=== PATIENT | female | born 1995 | race African-American/Black ===

== ENCOUNTER 2021-01-04 10:00 | Outpatient (CLI) | payer OTHER ==
[2021-01-04 12:36] LABS: BILIRUBIN,URINE NEGATIVE (NEGATIVE); GLUCOSE, URINE (UA) NEGATIVE (NEGATIVE); KETONES,URINE (UA) NEGATIVE (NEGATIVE); LEUKOCYTE ESTERASE, URINE NEGATIVE (NEGATIVE); NITRITE,URINE NEGATIVE (NEGATIVE); OCCULT BLOOD,URINE NEGATIVE (NEGATIVE); PH,URINE 6.5 PH (5.0-7.5); PROTEIN,URINE NEGATIVE (NEGATIVE); UROBILINOGEN,URINE 0.2 (NORMAL) E.U./dL (NORMAL)
[2021-01-04 12:42] LABS: CLARITY,URINE CLOUDY (CLEAR)
[2021-01-04 13:06] LABS: WBC,URINE 0-3 /HPF (0-5)
[2021-01-04 13:07] LABS: BACTERIA,URINE Rare /HPF (None Seen); EPITHELIAL CELLS,UR FEW Transitional /HPF (<= Few); MUCUS,URINE Marked Strands; RBC,URINE None Seen /HPF (0-5); SQUAMOUS EPITHELIAL CELL,UR FEW Squamous (<= Few)
== END 2021-01-04 23:59 | disposition home or self-care (01) ==
LOC: LAB.R 10:00
PROVIDERS: ATTEND Obstetrics & Gynecology
DX: Z32.01 Encounter for pregnancy test, result positive (principal)
CPT/HCPCS: 81001; 87086

== ENCOUNTER 2021-01-08 13:49 | Outpatient (CLI) | payer OTHER | END 2021-01-08 13:50 | disposition home or self-care (01) | LOC: LAB 13:49 | PROVIDERS: ATTEND Nurse Practitioner Obstetrics & Gynecology | DX: R09.81 Nasal congestion (principal); Z20.822 Contact with and (suspected) exposure to COVID-19 ==

== ENCOUNTER 2021-01-10 14:35 | Emergency (ER) | payer OTHER ==
[2021-01-10 14:53] VITALS: BP 122/78
--- NOTE | 2021-01-10 16:46 | ED Physician Documentation ---
PD HPI HEADACHE - Stated complaint Stated Complaint: RUNNY NOSE,COUGH,SORE THROAT - Chief complaint Chief Complaint: Heent - Additional information Additional information: 25-year-old female presents emergency department for evaluation of 3 days cough, congestion runny nose and sore throat. Her daughter was diagnosed about 5 days ago with RSV bronchiolitis. Patient is incidentally 10 weeks and has follow-up with Dr. Brown in early January. She denies lower abdominal pain nausea or vomiting. No vaginal bleeding or loss of fluids or vaginal spotting. Review of Systems Constitutional: denies: Fever, Chills Eyes: reports: Reviewed and negative Ears: reports: Reviewed and negative Nose: reports: Rhinorrhea / runny nose, Reviewed and negative Throat: reports: Sore throat Respiratory: reports: Cough GI: reports: Reviewed and negative : reports: Now EGA. denies: Dysuria, Vaginal bleeding, Irregular menses, Missed period Skin: reports: Reviewed and negative Musculoskeletal: reports: Reviewed and negative Neurologic: reports: Reviewed and negative PD PAST MEDICAL HISTORY - Past Medical History Past Medical History: No - Past Surgical History Past Surgical History: No - Allergies Allergies/Adverse Reactions: Allergies Allergy/AdvReac Type Severity Reaction Status Date / Time hazelnut Allergy Unknown Verified 01/10/21 14:54 sesame seed Allergy Unknown Verified 01/10/21 14:54 shellfish derived Allergy Unknown Verified 01/10/21 14:54 sulfamethoxazole AdvReac Headache Verified 01/10/21 14:54 [From Bactrim] trimethoprim [From Bactrim] AdvReac Headache Verified 01/10/21 14:54 - Social History Does the pt smoke?: No Smoking Status: Never smoker Does the pt drink ETOH?: No Does the pt have substance abuse?: No - Immunizations Immunizations are current?: Yes - POLST Patient has POLST: No PD ED PE NORMAL - General General: Alert and oriented X 3, No acute distress - HEENT HEENT: PERRL - Neck Neck: Supple, no meningeal sign - Cardiac Cardiac: RRR, No murmur - Respiratory Respiratory: Clear bilaterally - Abdomen Abdomen: Normal bowel sounds, Soft, Non tender, Non distended - Back Back: No CVA TTP Results - Vitals Vitals: Vital Signs - 24 hr 01/10/21 14:44 Temperature 37.1 C Heart Rate 96 Respiratory 16 Rate Blood Pressure 122/78 O2 Saturation 98 Oxygen O2 Source Room air PD MEDICAL DECISION MAKING - ED course Complexity details: reviewed results, re-evaluated patient, d/w patient ED course: Well-appearing 25-year-old female who was incidentally 10 weeks presents the emergency department for evaluation of cough congestion sore throat runny nose. Her daughter was diagnosed with RSV bronchiolitis. On exam she appears very well. Unremarkable cardiopulmonary auscultation. No hypoxia or tachypnea. I did recommend saline nasal rinse or Flonase spray for the congestion. Tylenol for any body aches. Continue to follow-up with her OB as already scheduled. Emergent return precautions were discussed for worsening sym ptoms, shortness of air or any concerns with the such as vaginal bleeding loss of fluids. Departure - Departure Disposition: 01 Home, Self Care Clinical Impression: Upper respiratory infection Qualifiers: URI type: unspecified viral URI Qualified Code(s): J06.9 - Acute upper respiratory infection, unspecified Comments: You have cough congestion runny nose sore throat. You likely have the same virus that is causing your daughter's bronchiolitis. However because you are to the treatment is a little more limited. You can try Flonase nasally that should help with congestion. Recommend you drink a lot of water and stay well-hydrated. Continue to follow-up with Dr. Brown for your . If you develop lower abdominal pain, have vaginal bleeding or spotting please return to the ER for a second look.
== END 2021-01-10 17:06 | disposition home or self-care (01) ==
LOC: ED 14:35
DX: O98.511 Other viral diseases complicating pregnancy, first trimester (principal); B33.8 Other specified viral diseases; Z3A.10 10 weeks gestation of pregnancy
CPT/HCPCS: 99281; 99282

== ENCOUNTER 2021-07-31 09:35 | Outpatient (CLI) | payer OTHER, MEDICAID | END 2021-07-31 23:59 | disposition home or self-care (01) | LOC: LAB.N 09:35 | PROVIDERS: ATTEND Family Medicine | DX: R07.0 Pain in throat (principal); Z20.822 Contact with and (suspected) exposure to COVID-19 ==

== ENCOUNTER 2022-07-09 08:00 | Outpatient (CLI) | payer OTHER ==
[2022-07-09 18:32] LABS: BACTERIAL VAGINOSIS DNA NEGATIVE (NEGATIVE); CANDIDA GLABRATA DNA NEGATIVE (NEGATIVE); CANDIDA GROUP DNA POSITIVE (NEGATIVE); CANDIDA KRUSEI DNA NEGATIVE (NEGATIVE); TRICHOMONAS VAGINALIS DNA NEGATIVE (NEGATIVE)
[2022-07-09 21:39] LABS: CHLAMYDIA TRACHOMATIS DNA NEGATIVE (NEGATIVE); NEISSERIA GONORRHOEAE DNA NEGATIVE (NEGATIVE); TRICHOMONAS VAGINALIS DNA NEGATIVE (NEGATIVE)
== END 2022-07-09 23:59 | disposition home or self-care (01) ==
LOC: LAB.N 08:00
PROVIDERS: ATTEND Nurse Practitioner
DX: N89.8 Other specified noninflammatory disorders of vagina (principal)
CPT/HCPCS: 81514; 86592; 86695; 86696; 86803; 87389; 87491; 87591; 87661

== ENCOUNTER 2022-07-09 09:20 | Outpatient (CLI) | payer OTHER ==
[2022-07-10 04:08] LABS: HCV AB 0.1 s/co ratio (0.0-0.9); HIV SCREEN 4TH GENERATION Non Reactive (Non Reactive)
[2022-07-10 06:10] LABS: HSV 2 IGG TYPE SPEC <0.91 index (0.00-0.90)
== END 2022-07-09 09:21 | disposition home or self-care (01) ==
LOC: LAB.N 09:20
PROVIDERS: ATTEND Nurse Practitioner
DX: N89.9 Noninflammatory disorder of vagina, unspecified (principal)
CPT/HCPCS: 86592; 86695; 86696; 86803; 87389